=== PATIENT | female | born 1935 | race Hispanic/Latino ===

== ENCOUNTER 2017-12-11 07:48 | Day surgery (SDC) | payer MEDICARE, BC ==
[~2017-12-11 07:48] MED LIST: Sodium Chloride 0.9% 1,000 ML IV SCH
[2017-12-11] MEDS ORDERED: Etomidate 20 mg/10ml Inj IV ONE (10:01)
[2017-12-11] MEDS ORDERED: Propofol 10 mg/ml Inj (20 ML) ONE (10:02)
[2017-12-11 11:26] VITALS: BP 134/75; PULSE 88; RESP 16; TEMP 98.8; O2SAT 97
== END 2017-12-11 12:07 | disposition home or self-care (01) ==
LOC: ENDO 07:48
PROVIDERS: ATTEND Internal Medicine Gastroenterology
DX: K29.70 Gastritis, unspecified, without bleeding (principal); K44.9 Diaphragmatic hernia without obstruction or gangrene; K29.80 Duodenitis without bleeding; D64.9 Anemia, unspecified; Z87.11 Personal history of peptic ulcer disease
CPT/HCPCS: 43239; 88305; 88342; J2001; J2704; J7030; J7040